=== PATIENT | male | born 1990 | race Caucasian/White ===

== ENCOUNTER 2024-01-03 01:11 | Emergency (ER) | payer MEDICARE ==
[~2024-01-03] VITALS: Ht 167.6 cm; Wt 74.8 kg
[~2024-01-03 01:11] MED LIST: BIOTIN PLUS 5,1 EACH PO; GABAPENTIN600 MG PO; HYDROCODONE-AC1 EACH PO; IRON325 M1 PO; Meclizine25 MG PO; ONDANSETRON4 MG SL; PANTOPRAZOLE SO40 MG PO; ROPINIROLE HY0.25 MG PO; TIZANIDINE HCL4 M1 PO; TYLENOL EXTRA500 MG PO; ZIPRASIDONE HCL20 M1 PO; ZIPRASIDONE HCL40 MG PO
[2024-01-03] MEDS ORDERED: diphenhydrAMINE hydrochloride 50 MG/ML VIAL IV ONE (01:40)
[2024-01-03] MEDS ORDERED: Metoclopramide Hydrochloride 10 MG/2 ML AMP IV ONE (01:40)
[2024-01-03] MEDS ORDERED: SODIUM CHLORIDE 0.9% 1,000 ML IV ONE (01:40)
[2024-01-03] MEDS ORDERED: IOHEXOL 300 MG/ML 100 ML VIAL IV ONE (01:45)
[2024-01-03 02:08] LABS: HEMATOCRIT 39.5 % (42.0-52.0); MEAN CELL VOLUME 90.8 fl (80.0-94.0); MEAN CORPUSCULAR HGB 30.6 pg (27.0-31.0); MEAN CORPUSCULAR HGB CONC 33.7 g/dl (33.0-37.0); MEAN PLATELET VOLUME 9.4 fl (9.6-12.3); PLATELET COUNT AUTOMATED 193 10*3/uL (130-400); RED BLOOD COUNT 4.35 10*6/uL (4.50-5.90); RED CELL DISTRI WIDTH 12.6 % (0-14.5); WHITE BLOOD COUNT 12.9 10*3/uL (4.8-10.8)
[2024-01-03 02:11] LABS: MANUAL DIFF REFLEX YES
[2024-01-03 02:21] LABS: ACT PARTIAL THROMBO TIME 24.4 SECONDS (20.0-32.1)
[2024-01-03 02:24] LABS: BILIRUBIN Negative (Negative); BLOOD Negative (Negative); CLARITY Clear (Clear); COLOR Yellow (Yellow); GLUCOSE Negative (Negative); KETONE 4+ (Negative); LEUKO ESTERASE 2+ (Negative); NITRITE Negative (Negative); SPECIFIC GRAVITY >= 1.030 (1.001-1.030)
[2024-01-03 02:31] LABS: URINE AMPHETAMINES Positive (1000ng/ml); URINE BARBITURATES Negative (200ng/ml); URINE BENZODIAZEPINES Negative (200ng/ml); URINE CANNABINOIDS (THC) Positive (50ng/ml); URINE COCAINE Negative (300ng/ml); URINE METHADONE Negative (300ng/ml); URINE OPIATES Positive (300ng/ml); URINE PHENCYCLIDINE Negative (25ng/ml)
[2024-01-03 02:31] LABS: PLATELET SUFFICIENCY NORMAL (NORMAL); TOTAL CELLS COUNTED 100 #CELLS
[2024-01-03 02:32] LABS: ALKALINE PHOSPHATASE 75 U/L (46-116); BUN 17 mg/dl (9-23); CHLORIDE 104 mmol/L (98-107); LIPASE 35 U/L (12-53); POTASSIUM 3.4 mmol/L (3.4-5.1); SGPT/ALT 33 U/L (5-49); TOTAL PROTEIN 7.2 gm/dL (6.0-8.0)
[2024-01-03 02:34] LABS: ETHYL ALCOHOL < 3.0 mg/dl (<3)
[2024-01-03 02:50] LABS: WBC 41-50 wbc/hpf (0-5)
[2024-01-03 02:51] LABS: BACTERIA 1+
[2024-01-03] MEDS ORDERED: Ondansetron4 MG PO (04:39)
[2024-01-03] MEDS ORDERED: Ondansetron Hydrochloride 4 MG/2 ML VIAL IV ONE (04:40)
[2024-01-03] MEDS ORDERED: MAGNESIUM OXIDE 400 MG TAB PO ONE (04:40)
[2024-01-03] MEDS ORDERED: MAGNESIUM CITRATE 296 ML BOT PO ONE (04:40)
== END 2024-01-03 05:00 | disposition home or self-care (01) ==
LOC: ED 01:11
PROVIDERS: Internal Medicine
DX: K59.03 Drug induced constipation (principal); T40.2X5A Adverse effect of other opioids, initial encounter; R11.2 Nausea with vomiting, unspecified; Z88.8 Allergy status to other drugs, medicaments and biological substances; Z90.49 Acquired absence of other specified parts of digestive tract; Z98.890 Other specified postprocedural states; Y92.89 Other specified places as the place of occurrence of the external cause